=== PATIENT | female | born 1985 | race Caucasian/White ===

== ENCOUNTER 2017-04-22 20:34 | Emergency (ER) | payer MEDICARE, MEDICAID ==
[2017-04-22 21:22] VITALS: BP 135/80
--- NOTE | 2017-04-22 22:08 | UC ---
Ear Complaint HPI - HPI Summary HPI Summary: pt is accompanied by mother. Pt c/o right jaw pain that radiates to right ear. Pt has two false teeth that were recently placed an wired to right upper molar. - History of Current Complaint Chief Complaint: UCEar Stated Complaint: RIGHT EAR PAIN Time Seen by Provider: 04/22/17 21:57 Hx Obtained From: Patient, Family/Salesperson Burial Needs Hx Last Menstrual Period: on depo ?: No Onset/Duration: Gradual Onset, Lasting Hours Severity Initially: Mild Severity Currently: Mild - Allergies/Home Medications Allergies/Adverse Reactions: Allergies Allergy/AdvReac Type Severity Reaction Status Date / Time Levetiracetam [From [facility]] Allergy See Comment Verified 09/11/16 21:26 Sulfa Drugs AdvReac Severe Difficulty Verified 09/11/16 21:26 Breathing PMH/Surg Hx/FS Hx/Imm Hx Previously Healthy: Yes 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), VAGAL NERVE IMPLANT (1998) - Family History Known Family History: Positive: Hypertension, Seizure Disorder - Social History Alcohol Use: None Substance Use Type: None Smoking Status (MU): Never Smoked Tobacco Have You Smoked in the Last Year: No - Immunization History Most Recent Influenza Vaccination: 2014 Most Recent Tetanus Shot: On file with primary Dr Lopes Most Recent Pneumonia Vaccination: 2012 Review of Systems Constitutional: Negative Skin: Negative Eyes: Negative ENT: Other - right jaw pain Respiratory: Negative Cardiovascular: Negative Gastrointestinal: Negative Genitourinary: Negative Motor: Negative Neurovascular: Negative Musculoskeletal: Negative Neurological: Negative Psychological: Negative All Other Systems Reviewed And Are Negative: Yes Physical Exam Triage Information Reviewed: Yes Appearance: Well-Appearing Vital Signs: Initial Vital Signs Temp 98.4 F 04/22/17 21:10 Pulse 79 04/22/17 21:10 Resp 16 04/22/17 21:10 BP 135/80 04/22/17 21:10 Pulse Ox 99 04/22/17 21:10 Vital Signs Reviewed: Yes Eye Exam: Normal ENT Exam: Normal Dental Exam: Other Dental: Positive: Percussion Tenderness @ - right upper teeth, no swelling or abscess appreciated Neck exam: Normal Respiratory Exam: Normal Cardiovascular Exam: Normal Musculoskeletal Exam: Normal Neurological Exam: Normal Psychological Exam: Normal Skin Exam: Normal Ear Complaint Course/Dx - Course Course Of Treatment: Pt was advised to return to dental care provider to evaluate false teeth and adjust for improved comfort - Differential Dx/Diagnosis Differential Diagnosis/HQI/PQRI: Otitis Media Provider Diagnoses: dental pain. Pt was advised to return to dental care provider to evaluate false teeth and adjust for improved comfort Discharge - Discharge Plan Condition: Stable Disposition: HOME Patient Education Materials: Toothache (ED) Referrals: Kary Lopes MD [Primary Care Provider] - If Needed Additional Instructions: Please follow up with your dental care provider as soon as possible
== END 2017-04-22 22:24 | disposition home or self-care (01) ==
LOC: UCCORT 20:34
DX: K08.89 Other specified disorders of teeth and supporting structures (principal); Z88.2 Allergy status to sulfonamides; Z88.8 Allergy status to other drugs, medicaments and biological substances
CPT/HCPCS: 99212; G0463

== ENCOUNTER 2017-12-19 08:51 | Emergency (ER) | payer MEDICARE, MEDICAID ==
[2017-12-19 09:37] VITALS: BP 124/60
--- NOTE | 2017-12-19 10:08 | UC ---
Hip/Pelvis Pain - HPI Summary HPI Summary: right hip pain x 1 day s/p fall this morning on her right hip has been walking well - History Of Current Complaint Chief Complaint: UCLowerExtremity Stated Complaint: S/P FALL RIGHT HIP PAIN Time Seen by Provider: 12/19/17 09:49 Hx Obtained From: Patient, Family/Food Service Agent Hx Last Menstrual Period: depoprovera ?: No Onset/Duration: Sudden Onset, Lasting Hours - 2, Still Present Timing: Constant Severity Initially: Mild Severity Currently: Mild Pain Intensity: 0 Pain Scale Used: 0-10 Numeric Character Of Pain: Aching Aggravating Factor(s): Movement Alleviating Factor(s): Rest Associated Signs And Symptoms: Negative: Swelling, Redness, Bruising, Weakness, Dizziness - Allergies/Home Medications Allergies/Adverse Reactions: Allergies Allergy/AdvReac Type Severity Reaction Status Date / Time Levetiracetam [From [facility]] Allergy See Comment Verified 12/19/17 09:37 Sulfa Drugs AdvReac Severe Difficulty Verified 12/19/17 09:37 Breathing PMH/Surg Hx/FS Hx/Imm Hx - Additional Past Medical History Additional PMH: seizures, ADHD, autism Neurological History: Seizures 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), VAGAL NERVE IMPLANT (1998) - Family History Known Family History: Positive: Hypertension, Seizure Disorder - Social History Alcohol Use: None Substance Use Type: None Smoking Status (MU): Never Smoked Tobacco Have You Smoked in the Last Year: No - Immunization History Most Recent Influenza Vaccination: 2014 Most Recent Tetanus Shot: On file with primary Dr Lopes Most Recent Pneumonia Vaccination: 2012 Review of Systems Constitutional: Negative Skin: Negative Eyes: Negative ENT: Negative Respiratory: Negative Cardiovascular: Negative Is Patient Immunocompromised?: No All Other Systems Reviewed And Are Negative: Yes Physical Exam Triage Information Reviewed: Yes Appearance: No Pain Distress, Obese Vital Signs: Initial Vital Signs Temp 98.1 F 12/19/17 09:30 Pulse 72 12/19/17 09:30 Resp 18 12/19/17 09:30 BP 124/60 12/19/17 09:30 Pulse Ox 98 12/19/17 09:30 Vital Signs Reviewed: Yes Eyes: Positive: Conjunctiva Clear ENT: Positive: Normal ENT inspection, Hearing grossly normal, Pharynx normal Neck: Positive: Supple, Nontender, No Lymphadenopathy Respiratory: Positive: Chest non-tender, Lungs clear, Normal breath sounds Cardiovascular: Positive: RRR, No Murmur, Pulses Normal Abdominal Exam: Normal Musculoskeletal: Positive: Other: - right hip: no swelling, no ecchymosis, mild diffuse tenderness, good ROM , normal stringth Hip Injury Course/Dx - Differential Dx/Diagnosis Provider Diagnoses: contusion right hip Discharge - Discharge Plan Condition: Stable Disposition: HOME Patient Education Materials: Hip Contusion (ED) Referrals: Kary Lopes MD [Primary Care Provider] - If Needed
== END 2017-12-19 10:00 | disposition home or self-care (01) ==
LOC: UCCORT 08:51
DX: S70.01XA Contusion of right hip, initial encounter (principal); W19.XXXA Unspecified fall, initial encounter; Y92.9 Unspecified place or not applicable; Z88.2 Allergy status to sulfonamides; Q24.9 Congenital malformation of heart, unspecified
CPT/HCPCS: 99212; G0463

== ENCOUNTER 2018-01-04 08:34 | Emergency (ER) | payer MEDICARE, MEDICAID ==
[2018-01-04 09:31] VITALS: BP 138/66
--- NOTE | 2018-01-04 09:46 | UC ---
Minor Trauma HPI - HPI Summary HPI Summary: right lower jaw pain x 1 day s/p fall off her bed one day ago hit her right lower jaw to the bed + pain and swelling of right lower jaw no problem with chewing , talking - History of Current Complaint Chief Complaint: UCUpperExtremity Stated Complaint: FACIAL COMPLAINT Time Seen by Provider: 01/04/18 09:30 Hx Obtained From: Patient, Family/Accounting Bookkeeper Hx Last Menstrual Period: DEPO Onset/Duration: Sudden Onset, Lasting Days - 1, Still Present Severity Initially: Moderate Severity Currently: Moderate Pain Intensity: 4 Mechanism Of Injury: Blunt Trauma - to right lower jaw Aggravating Factor(s): Other: - touch Alleviating Factor(s): Nothing Associated Signs And Symptoms: Negative: Loss Of Consciousness, Ecchymosis, Swelling - Allergies/Home Medications Allergies/Adverse Reactions: Allergies Allergy/AdvReac Type Severity Reaction Status Date / Time [facility]am [[facility] Allergy See Comment Verified 01/04/18 09:21 Sulfa (Sulfonamide Allergy Difficulty Verified 01/04/18 09:21 Antibiotics) Breathing PMH/Surg Hx/FS Hx/Imm Hx - Additional Past Medical History Additional PMH: seizures, ADHD, autism Neurological History: Seizures 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), VAGAL NERVE IMPLANT (1998) - Family History Known Family History: Positive: Hypertension, Seizure Disorder - Social History Alcohol Use: None Substance Use Type: None Smoking Status (MU): Never Smoked Tobacco Have You Smoked in the Last Year: No - Immunization History Most Recent Influenza Vaccination: 2014 Most Recent Tetanus Shot: On file with primary Dr Lopes Most Recent Pneumonia Vaccination: 2012 Review of Systems Constitutional: Negative Skin: Negative Eyes: Negative ENT: Negative Respiratory: Negative Cardiovascular: Negative Is Patient Immunocompromised?: No All Other Systems Reviewed And Are Negative: Yes Physical Exam Triage Information Reviewed: Yes Appearance: Well-Appearing, Well-Nourished, Obese Vital Signs: Initial Vital Signs Temp 99.1 F 01/04/18 09:24 Pulse 73 01/04/18 09:24 Resp 14 01/04/18 09:24 BP 138/66 01/04/18 09:24 Pulse Ox 99 01/04/18 09:24 Vital Signs Reviewed: Yes Eyes: Positive: Conjunctiva Clear ENT: Positive: Normal ENT inspection, Hearing grossly normal, Pharynx normal, Other - right lower jaw : no swelling, no bruising , mild tenderness, good ROM of the mouth / jaw Neck: Positive: Supple, Nontender, No Lymphadenopathy Respiratory: Positive: Chest non-tender, Lungs clear, Normal breath sounds Cardiovascular Exam: Normal Cardiovascular: Positive: RRR, No Murmur Minor Trauma Course/Dx - Differential Dx/Diagnosis Provider Diagnoses: contusion jaw Discharge - Discharge Plan Condition: Stable Disposition: HOME Patient Education Materials: Facial Contusion (ED) Referrals: Kary Lopes MD [Primary Care Provider] - If Needed
== END 2018-01-04 09:52 | disposition home or self-care (01) ==
LOC: UCCORT 08:34
DX: S00.83XA Contusion of other part of head, initial encounter (principal); W06.XXXA Fall from bed, initial encounter; Y92.9 Unspecified place or not applicable; I50.9 Heart failure, unspecified
CPT/HCPCS: 99211; G0463

== ENCOUNTER 2018-02-02 17:37 | Emergency (ER) | payer MEDICARE, MEDICAID ==
[2018-02-02 18:02] VITALS: BP 118/73
--- NOTE | 2018-02-02 18:11 | ED ---
Throat Pain/Nasal Congestion - HPI Summary HPI Summary: 32 yr old female with the complaint of left eye irritation, drainage. Onset couple of days ago. No blur vision. No other complaints. - History of Current Complaint Chief Complaint: UCEye Time Seen by Provider: 02/02/18 17:53 - Allergies/Home Medications Allergies/Adverse Reactions: Allergies Allergy/AdvReac Type Severity Reaction Status Date / Time levetiracetam [From [facility]] Allergy See Comment Verified 02/02/18 17:55 Sulfa (Sulfonamide Allergy Difficulty Verified 02/02/18 17:55 Antibiotics) Breathing Home Medications: Home Medications Diazepam (ANTICONVULSANT)(*) [Diastat Acudial(*)] 20 mg RC SEE INSTRUCTIONS [History Confirmed 02/02/18] Melatonin 5 mg BEDTIME 02/02/18 [History Confirmed 02/02/18] Methylphenidate ER TAB* [Concerta ER TAB*] 36 mg QAM 02/02/18 [History Confirmed 02/02/18] Pregabalin CAP(*) [Lyrica CAP(*)] 150 mg BID 02/02/18 [History Confirmed ] Topiramate TAB(*) [Topamax 100 mg tab] 200 mg PO BID 02/02/18 [History Confirmed 02/02/18] carBAMazepine ER TAB(*) [TEGretol Xr TAB(*)] 400 mg PO BID 02/02/18 [History Confirmed 02/02/18] carBAMazepine ER TAB(*) [Tegretol Xr TAB(*)] 3 tab QPM 02/02/18 [History Confirmed 02/02/18] clonazePAM TAB(*) [KlonoPIN TAB(*)] 1 mg PO BID 02/02/18 [History Confirmed ] guanFACINE TAB* [Tenex TAB*] 2 mg PO DAILY 02/02/18 [History Confirmed 02/02/18] medroxyPROGESTERone ACETATE* [DEPO-Provera*] 1 inj SEE INSTRUCTIONS 02/02/18 [ History Confirmed 02/02/18] PMH/Surg Hx/FS Hx/Imm Hx Endocrine/Hematology History: Denies: Hx Anticoagulant Therapy, Hx Blood Disorders, Hx Blood Transfusions, Hx Bone Marrow Disease, Hx Diabetes - But Pt is morbidly obese, Hx Systemic Lupus Erythematosus, Hx Sickle Cell Disease, Hx Thyroid Disease, Hx Anemia, Hx Unexplained Bleeding, Other Endocrine/Hematological Disorders Cardiovascular History: Reports: 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), Hx Valvular Heart Disease - tricuspid regurgitation, pulmonic stenosis Denies: Hx Aneurysm, Hx Angina, Hx Angioplasty, Hx Auto Implanted Cardiovert Defib, Hx Cardiac Arrest, Hx Cardiomegaly, Hx Congestive Heart Failure, Hx Coronary Artery Disease, Hx Deep Vein Thrombosis, Hx Embolism, Hx Hypercholesterolemia, Hx Hypotension, Hx Hypertension, Hx Pacemaker/ICD - X 23 years ago, VAGEL NERVE IMPLANT, Hx Peripheral Vascular Disease, Hx Rheumatic Fever, Hx Syncope, Other Cardiovascular Problems/Disorders Respiratory History: Denies: Hx Asthma, Hx Chronic Bronchitis, Hx Chronic Obstructive Pulmonary Disease (COPD), Hx Cystic Fibrosis, Hx Lung Cancer, Hx Pleural Effusion, Hx Pneumonia, Hx Pulmonary Edema, Hx Pulmonary Embolism, Hx Seasonal Allergies, Hx Sleep Apnea, Other Respiratory Problems/Disorders GI History: Denies: Hx Cirrhosis, Hx Crohn's Disease, Hx Diverticulosis, Hx Gall Bladder Disease, Hx Gastroesophageal Reflux Disease, Hx Gastrointestinal Bleed, Hx Hiatal Hernia, Hx Irritable Bowel, Hx Jaundice, Hx Obstructive Bowel, Hx Ileostomy, Hx Pyloric Stenosis, Hx Ulcer, Other GI Disorders History: Reports: Other Problems/Disorders - Urinary Incontinence- especially with seizure activity Denies: Hx Acute Renal Failure, Hx Benign Prostatic Hyperplasia, Hx Chronic Renal Failure, Hx Dialysis, Hx Kidney Infection, Hx Kidney Stones Musculoskeletal History: Denies: Hx Arthritis, Hx Back Problems, Hx Bursitis, Hx Congenital Bone Abnormalities, Hx Fibromyalgia, Hx Gout, Hx Orthopedic Injury, Hx Osteoporosis, Hx Scoliosis, Hx Tendonitis, Other Musculoskeletal History Sensory History: Denies: Hx Cataracts, Hx Contacts or Glasses, Hx Eye Injury, Hx Eye Prosthesis, Hx Glaucoma, Hx Legally Blind, Hx Macular Degeneration, Hx Vision Problem, Hx Deafness, Hx Hearing Aid, Hx Hearing Problem, Other Sensory Impairments Opthamlomology History: Denies: Hx Cataracts, Hx Contacts or Glasses, Hx Eye Injury, Hx Eye Prosthesis, Hx Glaucoma, Hx Legally Blind, Hx Macular Degeneration, Hx Vision Problem, Other Sensory Impairments Neurological History: Reports: Hx Developmental Delay - Mental Retardation since , Hx Headaches - Pt reports as a particular presenting seizure, Hx Seizures - Hx seizures since infancy/Medically-intractable epilepsy, Other Neuro Impairments/Disorders - Developmental Delay since . Denies: Hx Dementia, Hx Migraine, Hx Nerve Disease, Hx Spinal Cord Injury, Hx Transient Ischemic Attacks (TIA) Psychiatric History: Reports: Hx Attention Deficit Hyperactivity Disorder Denies: Hx Anxiety, Hx Eating Disorder, Hx Depression, Hx Panic Disorder, Hx Post Traumatic Stress Disorder, Hx Inpatient Treatment, Hx Community Mental Health Tx, Hx Schizophrenia, Hx Bipolar Disorder, Hx Suicide Attempt, Hx of Violent Episodes Against Others, Hx Substance Abuse, Other Psychiatric Issues/ Disorders - Cancer History Hx Chemotherapy: No Hx Radiation Therapy: No Hx Palliative Cancer Treatment: No - Surgical History Surgery Procedure, Year, and Place: 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), VAGAL NERVE IMPLANT (1998) Hx Anesthesia Reactions: No - Immunization History Date of Tetanus Vaccine: unk Date of Influenza Vaccine: unk Infectious Disease History: No Infectious Disease History: Denies: Hx Clostridium Difficile, Hx Hepatitis, Hx Human Immunodeficiency Virus (HIV), Hx of Known/Suspected MRSA, Hx Shingles, Hx Tuberculosis, Hx Known/ Suspected VRE, Hx Known/Suspected VRSA, History Other Infectious Disease, Traveled Outside the [place] in Last 30 Days - Family History Known Family History: Positive: Hypertension, Seizure Disorder - Social History Alcohol Use: None Substance Use Type: Reports: None Smoking Status (MU): Never Smoked Tobacco Have You Smoked in the Last Year: No Review of Systems Constitutional: Negative Positive: Drainage, Erythema All Other Systems Reviewed And Are Negative: Yes Physical Exam Triage Information Reviewed: Yes Vital Signs On Initial Exam: Initial Vitals Temp Pulse Resp BP Pulse Ox 98.3 F 63 16 118/73 100 02/02/18 17:56 02/02/18 17:56 02/02/18 17:56 02/02/18 17:56 02/02/18 17:56 Vital Signs Reviewed: Yes Appearance: Positive: Well-Appearing, No Pain Distress, Well-Nourished Skin: Positive: Warm, Skin Color Reflects Adequate Perfusion Head/Face: Positive: Normal Head/Face Inspection Eyes: Positive: EOMI, Conjunctiva Inflammed - bilateral left greater than right. with bilateral drainage., Discharge ENT: Positive: TMs normal Neck: Positive: Nontender Respiratory/Lung Sounds: Positive: Other - normal effort Cardiovascular: Positive: RRR, Murmur Musculoskeletal: Positive: Strength/ROM Intact Neurological: Positive: Sensory/Motor Intact, Alert, Oriented to Person Place, Time, CN Intact II-III Diagnostics - Vital Signs Vital Signs Temp Pulse Resp BP Pulse Ox 02/02/18 17:56 98.3 F 63 16 118/73 100 - Laboratory Lab Statement: Any lab studies that have been ordered have been reviewed, and results considered in the medical decision making process. EENT Course/Dx - Diagnoses Provider Diagnoses: Conjunctivitis Discharge - Discharge Plan Condition: Good Disposition: HOME Prescriptions: Erythromycin OPTH OINT* [Erythromycin 0.5% OPTH OINT*] 1 applic BOTH EYES TID # 1 tube Patient Education Materials: Conjunctivitis (ED) Referrals: Kary Lopes MD [Primary Care Provider] - 2 Days
== END 2018-02-02 18:21 | disposition home or self-care (01) ==
LOC: UCCORT 17:37
DX: Z88.2 Allergy status to sulfonamides (principal); Z88.8 Allergy status to other drugs, medicaments and biological substances; Q24.9 Congenital malformation of heart, unspecified; R62.50 Unspecified lack of expected normal physiological development in childhood; F79 Unspecified intellectual disabilities; G40.919 Epilepsy, unspecified, intractable, without status epilepticus; F90.9 Attention-deficit hyperactivity disorder, unspecified type; H10.9 Unspecified conjunctivitis
CPT/HCPCS: 99212; G0463

== ENCOUNTER 2018-03-23 16:37 | Emergency (ER) | payer MEDICARE, MEDICAID ==
[2018-03-23 19:24] VITALS: BP 119/45
--- NOTE | 2018-03-23 19:36 | UC ---
Skin Complaint HPI - HPI Summary HPI Summary: Per ccna "pain under right breast today." here w/ staff member Nichole. -red area under skin. itchy, painful, no d/c. has had nystatin powder for this in past. - History of Current Complaint Chief Complaint: UCSkin Time Seen by Provider: 03/23/18 19:06 Stated Complaint: PAIN RIGHT SIDE Hx Last Menstrual Period: DEPO Pain Intensity: 4 - Allergy/Home Medications Allergies/Adverse Reactions: Allergies Allergy/AdvReac Type Severity Reaction Status Date / Time levetiracetam [From [facility]] Allergy See Comment Verified 03/23/18 16:58 Sulfa (Sulfonamide Allergy Difficulty Verified 03/23/18 16:58 Antibiotics) Breathing Review of Systems Constitutional: Negative Skin: Rash Eyes: Negative ENT: Negative Respiratory: Negative Cardiovascular: Negative Gastrointestinal: Negative Genitourinary: Negative Motor: Negative Neurovascular: Negative Musculoskeletal: Negative Neurological: Negative Psychological: Negative Is Patient Immunocompromised?: No All Other Systems Reviewed And Are Negative: Yes PMH/Surg Hx/FS Hx/Imm Hx Previously Healthy: Yes Cardiovascular History: Cardiac Disease 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), VAGAL NERVE IMPLANT (1998) - Family History Known Family History: Positive: Hypertension, Seizure Disorder - Social History Alcohol Use: None Substance Use Type: None Smoking Status (MU): Never Smoked Tobacco Have You Smoked in the Last Year: No - Immunization History Most Recent Influenza Vaccination: 2014 Most Recent Tetanus Shot: On file with primary Dr Lopes Most Recent Pneumonia Vaccination: 2012 Physical Exam Triage Information Reviewed: Yes Appearance: Well-Appearing, No Pain Distress, Well-Nourished - very pleasant Vital Signs: Initial Vital Signs Temp 97.9 F 03/23/18 16:52 Pulse 64 03/23/18 16:52 Resp 17 03/23/18 16:52 BP 121/67 03/23/18 16:52 Pulse Ox 99 03/23/18 16:52 Respiratory Exam: Normal Respiratory: Positive: Lungs clear Cardiovascular Exam: Normal Cardiovascular: Positive: RRR Skin: Positive: rashes - right inframmary area with mild -mod non-blanchin area of erythema under bra starp. no streaks of d/c. Course/Dx - Course Course Of Treatment: yeast infection - Differential Diagnoses - Skin Complaint Differential Diagnoses: Tinea, Viral Exanthem - Diagnoses Provider Diagnoses: yeast infection skin Discharge - Sign-Out/Discharge Documenting (check all that apply): Post-Discharge Follow Up - Discharge Plan Condition: Stable Disposition: HOME Prescriptions: Nystatin TOP POWDER* 1 applic TOPICAL TID 14 Days #1 btl Patient Education Materials: Skin Yeast Infection (ED) Referrals: Kary Lopes MD [Primary Care Provider] - If Needed - Billing Disposition and Condition Condition: STABLE Disposition: HOME
== END 2018-03-23 19:42 | disposition home or self-care (01) ==
LOC: UCCORT 16:37
DX: B37.2 Candidiasis of skin and nail (principal); Z88.8 Allergy status to other drugs, medicaments and biological substances; Z88.2 Allergy status to sulfonamides
CPT/HCPCS: 99212; G0463

== ENCOUNTER 2018-06-05 18:32 | Emergency (ER) | payer MEDICARE, MEDICAID ==
[2018-06-05 18:51] VITALS: BP 123/57
--- NOTE | 2018-06-05 19:10 | UC ---
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 pt is c/o abrasion to the R elbow and R hip pain. no loc/head injury. 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 - History Of Current Complaint Chief Complaint: UCLowerExtremity Stated Complaint: RIGHT HIP/RIGHT ELBOW PAIN S/P FALL Time Seen by Provider: 06/05/18 18:55 Hx Obtained From: Patient, Family/Restaurant District Manager Hx Last Menstrual Period: on Depo Provera Onset/Duration: Sudden Onset Pain Intensity: 8 Aggravating Factor(s): Nothing Alleviating Factor(s): Nothing - Allergies/Home Medications Allergies/Adverse Reactions: Allergies Allergy/AdvReac Type Severity Reaction Status Date / Time levetiracetam [From [facility]] Allergy See Comment Verified 06/05/18 18:51 Sulfa (Sulfonamide Allergy Difficulty Verified 06/05/18 18:51 Antibiotics) Breathing Home Medications: Home Medications Ascorbic Acid TAB* [Vitamin C TAB*] 500 mg PO DAILY 06/05/18 [History Confirmed 06/05/18] Cholecalciferol TAB* [Vitamin D TAB*] 1,000 unit PO DAILY 06/05/18 [History Confirmed 06/05/18] Lacosamide TAB* [Vimpat TAB*] 100 mg PO BID 06/05/18 [History Confirmed 06/05/18 ] Nystatin TOP POWDER* 1 applic TOPICAL TID PRN 06/05/18 [History Confirmed ] PMH/Surg Hx/FS Hx/Imm Hx - Additional Past Medical History Additional PMH: Intellectual disability, sz's, ADHD Cardiovascular History: Hypertension 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), VAGAL NERVE IMPLANT (1998) - Family History Known Family History: Positive: Hypertension, Seizure Disorder - Social History Occupation: Disabled Lives: [place] Alcohol Use: None Substance Use Type: None Smoking Status (MU): Never Smoked Tobacco Have You Smoked in the Last Year: No - Immunization History Most Recent Influenza Vaccination: 2014 Most Recent Tetanus Shot: On file with primary Dr Lopes Most Recent Pneumonia Vaccination: 2012 Vaccination Up to Date: Yes Review of Systems Constitutional: Negative Skin: Other - abrasion R elbow Eyes: Negative ENT: Negative Respiratory: Negative Cardiovascular: Negative Gastrointestinal: Negative Genitourinary: Negative Motor: Negative Neurovascular: Negative Musculoskeletal: Other: - pain r hip Neurological: Negative Psychological: Negative Is Patient Immunocompromised?: No All Other Systems Reviewed And Are Negative: Yes - Comments Additional Review of Systems Comments: caregiver and pt give hx Physical Exam Triage Information Reviewed: Yes Appearance: Well-Appearing Vital Signs: Initial Vital Signs Temp 97.5 F 06/05/18 18:42 Pulse 65 06/05/18 18:42 Resp 18 06/05/18 18:42 BP 123/57 06/05/18 18:42 Pulse Ox 99 06/05/18 18:42 Vital Signs Reviewed: Yes Eyes: Positive: Conjunctiva Clear ENT: Positive: Pharynx normal, TMs normal. Negative: Nasal congestion, Nasal drainage Neck: Positive: Supple, Nontender, No Lymphadenopathy Respiratory: Positive: Chest non-tender, Lungs clear, Normal breath sounds Cardiovascular: Positive: RRR, No Murmur Abdomen Description: Positive: Nontender, No Organomegaly, Soft Bowel Sounds: Positive: Present Musculoskeletal: Positive: Other: - Cervical, thoracic and lumbar spine are without deformity or tenderness. Right upper extremity is noted to have superficial abrasion over the elbow but no other deformity and no tenderness appreciated postal sensorivascular motor is intact. Left upper and left lower extremities are atraumatic and have full sensorivascular motor function. Pelvis is without instability or tenderness and no gross deformity swelling or discoloration appreciated; however, patient complains of pain to her right hip during the exam. Both look very have full sensorivascular motor function and patient is normal steady gait. Head is atraumatic. Neurological: Positive: Alert Psychological: Positive: Age Appropriate Behavior - baseline for this pt Skin Exam: Normal Diagnostics - Radiology No standard instances Radiology Interpretation Completed By: Radiologist - IMPRESSION: NEGATIVE EXAMINATION. Hip Injury Course/Dx - Course Course Of Treatment: no fx. - Differential Dx/Diagnosis Provider Diagnoses: Abrasion R elbow. Contusion R hip Discharge - Sign-Out/Discharge Documenting (check all that apply): Patient Departure - Discharge Plan Condition: Stable Disposition: HOME Patient Education Materials: Abrasion (ED), Hip Contusion (ED) Referrals: Kary Lopes MD [Primary Care Provider] - If Needed - Billing Disposition and Condition Condition: STABLE Disposition: Home
--- NOTE | 2018-06-05 19:34 | RAD ---
INDICATION: Right hip pain COMPARISON: None TECHNIQUE: An AP view of the pelvis and AP views of the hip in neutral and abducted position were obtained FINDINGS: Bones: There are no acute bony findings. Joint spaces: The hips articulate normally. The joint spaces are preserved. SI joints/symphysis: The SI joints and symphysis are intact. Other: None IMPRESSION: NEGATIVE EXAMINATION.
== END 2018-06-05 19:57 | disposition home or self-care (01) ==
LOC: UCCORT 18:32
DX: S70.01XA Contusion of right hip, initial encounter (principal); W01.0XXA Fall on same level from slipping, tripping and stumbling without subsequent striking against object, initial encounter; Y93.01 Activity, walking, marching and hiking; Y92.9 Unspecified place or not applicable; Z88.2 Allergy status to sulfonamides; Z88.8 Allergy status to other drugs, medicaments and biological substances; I10 Essential (primary) hypertension; R56.9 Unspecified convulsions; S50.311A Abrasion of right elbow, initial encounter
CPT/HCPCS: 99212; G0463

== ENCOUNTER 2018-10-31 07:59 | Emergency (ER) | payer MEDICARE, MEDICAID ==
--- NOTE | 2018-10-31 08:21 | UC ---
Knee Pain HPI - HPI Summary HPI Summary: 32-year-old woman comes in to clinic today with a chief complaint of fall and injury to the right knee. Just prior to arrival she tripped on a step indoors and landed on a right knee. She is an abrasion on the right knee. She got up right away has been able to ambulate without any complaint of pain. Denies any other injuries. Walking does not make the pain worse. - History of Current Complaint Stated Complaint: S/P FALL, RT KNEE INJURY Time Seen by Provider: 10/31/18 08:16 Hx Last Menstrual Period: on Depo Provera - Allergies/Home Medications Allergies/Adverse Reactions: Allergies Allergy/AdvReac Type Severity Reaction Status Date / Time levetiracetam [From [facility]] Allergy See Comment Verified 06/05/18 18:51 Sulfa (Sulfonamide Allergy Difficulty Verified 06/05/18 18:51 Antibiotics) Breathing PMH/Surg Hx/FS Hx/Imm Hx Previously Healthy: Yes Neurological History: Seizures 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), VAGAL NERVE IMPLANT (1998) - Family History Known Family History: Positive: Hypertension, Seizure Disorder - Social History Alcohol Use: None Substance Use Type: None Smoking Status (MU): Never Smoked Tobacco Have You Smoked in the Last Year: No - Immunization History Most Recent Influenza Vaccination: 2014 Most Recent Tetanus Shot: On file with primary Dr Lopes Most Recent Pneumonia Vaccination: 2013 Vaccination Up to Date: Yes Review of Systems All Other Systems Reviewed And Are Negative: Yes Constitutional: Positive: Negative Skin: Positive: Other - SEE HPI Eyes: Positive: Negative ENT: Positive: Negative Respiratory: Positive: Negative Cardiovascular: Positive: Negative Gastrointestinal: Positive: Negative Motor: Positive: Negative Neurovascular: Positive: Negative Musculoskeletal: Positive: Negative Neurological: Positive: Negative Psychological: Positive: Negative Is Patient Immunocompromised?: No Physical Exam Triage Information Reviewed: Yes Appearance: Well-Appearing, No Pain Distress, Well-Nourished Vital Signs Reviewed: Yes Eye Exam: Normal Eyes: Positive: Conjunctiva Clear Neck exam: Normal Neck: Positive: Supple Respiratory: Positive: No respiratory distress Musculoskeletal Exam: Normal Musculoskeletal: Positive: Strength Intact, ROM Intact, No Edema, Other: - The right knee is not swollen. It is full range of motion it's nontender except directly over the top of the abrasion. It's stable to exam. Hip and ankle have full range of motion and are nontender there is no injuries found on examination other than the abrasion to the right knee. Neurological Exam: Normal Neurological: Positive: Alert, Muscle Tone Normal Psychological Exam: Normal Psychological: Positive: Age Appropriate Behavior Skin: Positive: Other - 2CM DIAMETER SUPERFICIAL ABRASION RT KNEE. Knee Pain Course/Dx - Differential Dx/Diagnosis Provider Diagnosis: Abrasion Discharge - Sign-Out/Discharge Documenting (check all that apply): Patient Departure All imaging exams completed and their final reports reviewed: No Studies - Discharge Plan Condition: Stable Disposition: HOME Patient Education Materials: Abrasion (ED) Referrals: Kary Lopes MD [Primary Care Provider] - Additional Instructions: FOLLOW UP WITH YOUR DOCTOR IF NOT COMPLETELY IMPROVED. GET RECHECKED FOR ANY WORSENING OF YOUR CONDITION OR QUESTIONS OR CONCERNS. - Billing Disposition and Condition Condition: STABLE Disposition: Home
[2018-10-31 08:24] VITALS: BP 116/63
== END 2018-10-31 08:25 | disposition home or self-care (01) ==
LOC: UCCORT 07:59
DX: S80.211A Abrasion, right knee, initial encounter (principal); W19.XXXA Unspecified fall, initial encounter; Y92.9 Unspecified place or not applicable; Z88.2 Allergy status to sulfonamides; Z88.8 Allergy status to other drugs, medicaments and biological substances
CPT/HCPCS: 99212; G0463

== ENCOUNTER 2018-12-06 09:46 | Emergency (ER) | payer MEDICARE, MEDICAID ==
[2018-12-06 11:37] VITALS: BP 102/60
--- NOTE | 2018-12-06 11:56 | UC ---
Eye Complaint HPI - HPI Summary HPI Summary: right eye pain and swelling x 1 day s/p fall out of her bed last night , hit her right orbit + pain , swelling, bruising around the right eye no eye pain , no change in vision - History of Current Complaint Chief Complaint: UCHeadInjury Stated Complaint: RIGHT EYE COMPLAINT S/P FALL Time Seen by Provider: 12/06/18 11:40 Hx Obtained From: Patient, Family/Auctioneer Tobacco Hx Last Menstrual Period: n/a Onset/Duration: Sudden Onset, Lasting Days - 1, Still Present Timing: Constant Severity Initially: Moderate Severity Currently: Moderate Pain Intensity: 8 Location of Injury: Periorbital - swelling and bruising Character: Dull Aggravating Factor(s): Other - touch Alleviating Factor(s): Nothing Associated Signs And Symptoms: Positive: Swelling. Negative: Photophobia, Drainage (Clear), Drainage (Purulent), Vision Impairment Bilateral, Vision Impairment Right, Vision Impairment Left, Fever Related History: Trauma - s/p fall out of her erica - Allergies/Home Medications Allergies/Adverse Reactions: Allergies Allergy/AdvReac Type Severity Reaction Status Date / Time levetiracetam [From [facility]] Allergy See Comment Verified 12/06/18 11:38 Sulfa (Sulfonamide Allergy Difficulty Verified 12/06/18 11:38 Antibiotics) Breathing Home Medications: Home Medications See Med List Of 12/06/18 12/06/18 [History] PMH/Surg Hx/FS Hx/Imm Hx Cardiovascular History: Cardiac Disease Neurological History: Seizures 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), VAGAL NERVE IMPLANT (1998) - Family History Known Family History: Positive: Hypertension, Seizure Disorder - Social History Alcohol Use: None Substance Use Type: None Smoking Status (MU): Never Smoked Tobacco Have You Smoked in the Last Year: No - Immunization History Most Recent Influenza Vaccination: 2014 Most Recent Tetanus Shot: On file with primary Dr Lopes Most Recent Pneumonia Vaccination: 2013 Vaccination Up to Date: Yes Review of Systems All Other Systems Reviewed And Are Negative: Yes Constitutional: Positive: Negative Skin: Positive: Negative Eyes: Negative: Blurred Vision, Diplopia, Drainage, Eye Redness, Photophobia ENT: Positive: Negative Respiratory: Positive: Negative Is Patient Immunocompromised?: No Physical Exam Triage Information Reviewed: Yes Appearance: Well-Appearing, No Pain Distress, Obese Vital Signs: Initial Vital Signs Temp 98.6 F 12/06/18 11:25 Pulse 62 12/06/18 11:25 Resp 18 12/06/18 11:25 BP 102/60 12/06/18 11:25 Pulse Ox 99 12/06/18 11:25 Vital Signs Reviewed: Yes Eyes: Positive: Conjunctiva Clear, Other: - periorbital ecchymosis , mild tenderness, + swelling PERRLA . EOMI. Negative: Conjunctiva Inflamed, Discharge ENT: Positive: Normal ENT inspection, Hearing grossly normal, Pharynx normal Eye Complaint Course/Dx - Differential Dx/Diagnosis Provider Diagnosis: Periorbital contusion Discharge - Sign-Out/Discharge Documenting (check all that apply): Patient Departure All imaging exams completed and their final reports reviewed: No Studies - Discharge Plan Condition: Stable Disposition: HOME Patient Education Materials: Contusion in Adults (ED) Referrals: Kary Lopes MD [Primary Care Provider] - If Needed - Billing Disposition and Condition Condition: STABLE Disposition: Home
== END 2018-12-06 11:57 | disposition home or self-care (01) ==
LOC: UCCORT 09:46
DX: S00.11XA Contusion of right eyelid and periocular area, initial encounter (principal); W06.XXXA Fall from bed, initial encounter; Y92.003 Bedroom of unspecified non-institutional (private) residence as the place of occurrence of the external cause; Z88.1 Allergy status to other antibiotic agents; Z88.8 Allergy status to other drugs, medicaments and biological substances
CPT/HCPCS: 99212; G0463

== ENCOUNTER 2019-02-06 08:43 | Emergency (ER) | payer MEDICARE, MEDICAID ==
[2019-02-06 09:05] VITALS: BP 100/65
--- NOTE | 2019-02-06 10:04 | UC ---
Knee Pain HPI - HPI Summary HPI Summary: Pt is accompanied by jail caregiver. Caregiver reported that pt tripped coming down stairs coming off bus to work and landed on bilateral knees today. Pt now c/o left knee abrasion, pain, swelling and bruising. - History of Current Complaint Chief Complaint: UCLowerExtremity Stated Complaint: LEFT KNEE INJ Time Seen by Provider: 02/06/19 09:53 Hx Obtained From: Patient, Family/Hose Tubing Backer Hx Last Menstrual Period: n/a ?: No Onset/Duration: Sudden Onset, Still Present Severity Initially: Mild Severity Currently: Mild Pain Intensity: 6 Character: Dull, Aching Aggravating Factor(s): Movement, Weight Bearing Alleviating Factor(s): Rest, Position Associated Signs And Symptoms: Positive: Swelling, Redness, Bruising Able to Bear Weight: Yes - Risk Factors Septic Arthritis Risk Factor: Negative Gout Risk Factor: Negative - Allergies/Home Medications Allergies/Adverse Reactions: Allergies Allergy/AdvReac Type Severity Reaction Status Date / Time levetiracetam [From [facility]] Allergy See Comment Verified 02/06/19 09:01 Sulfa (Sulfonamide Allergy Difficulty Verified 02/06/19 09:01 Antibiotics) Breathing PMH/Surg Hx/FS Hx/Imm Hx Previously Healthy: Yes Cardiovascular History: Cardiac Disease Neurological History: Seizures 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), VAGAL NERVE IMPLANT (1998) - Family History Known Family History: Positive: Hypertension, Seizure Disorder - Social History Occupation: Employed Part-time, Disabled Lives: [place] Alcohol Use: None Substance Use Type: None Smoking Status (MU): Never Smoked Tobacco Have You Smoked in the Last Year: No - Immunization History Most Recent Influenza Vaccination: 2014 Most Recent Tetanus Shot: On file with primary Dr Lopes Most Recent Pneumonia Vaccination: 2013 Vaccination Up to Date: Yes Review of Systems All Other Systems Reviewed And Are Negative: Yes Constitutional: Positive: Negative Skin: Positive: Bruising, Other - abrasion Eyes: Positive: Negative ENT: Positive: Negative Respiratory: Positive: Negative Cardiovascular: Positive: Negative Gastrointestinal: Positive: Negative Genitourinary: Positive: Negative Motor: Positive: Negative Neurovascular: Positive: Negative Musculoskeletal: Positive: Arthralgia, Myalgia Neurological: Positive: Negative Psychological: Positive: Negative Is Patient Immunocompromised?: No Physical Exam Triage Information Reviewed: Yes Appearance: Well-Appearing Vital Signs: Initial Vital Signs Temp 97.5 F 02/06/19 09:00 Pulse 64 02/06/19 09:00 Resp 18 02/06/19 09:00 BP 100/65 02/06/19 09:00 Pulse Ox 100 02/06/19 09:00 Vital Signs Reviewed: Yes Eye Exam: Normal ENT Exam: Normal Dental Exam: Normal Neck exam: Normal Respiratory Exam: Normal Cardiovascular Exam: Normal Musculoskeletal Exam: Normal Musculoskeletal: Positive: Strength Intact, ROM Intact Neurological Exam: Normal Psychological Exam: Normal Skin Exam: Other - contusion left medial calf, and left anterior knee. multiple superficial abrasions, laceration, bleeding controlled. ~ 3 cm in length and 2mm wide and 2 mm depth. edges of wound well appoximated and bleeding stopped at time of exam. Diagnostics - Radiology No standard instances Radiology Interpretation Completed By: Radiologist - REPORT AND IMPRESSION: #. Negative for joint effusion, fracture, or malalignment. Preserved joint spaces. Mild predominant anterior soft tissue swelling. Knee Pain Course/Dx - Differential Dx/Diagnosis Differential Diagnosis/HQI/PQRI: Abrasion, Fracture (Closed) Provider Diagnosis: Laceration of left knee, Contusion of left knee and lower leg, Abrasion of left knee Discharge - Sign-Out/Discharge Documenting (check all that apply): Patient Departure All imaging exams completed and their final reports reviewed: Yes - Discharge Plan Condition: Stable Disposition: HOME Patient Education Materials: Abrasion (ED), Knee Pain (ED) Referrals: Kary Lopes MD [Primary Care Provider] - If Needed - Billing Disposition and Condition Condition: STABLE Disposition: Home
== END 2019-02-06 10:25 | disposition home or self-care (01) ==
LOC: UCCORT 08:43
DX: S81.012A Laceration without foreign body, left knee, initial encounter (principal); S80.02XA Contusion of left knee, initial encounter; S80.212A Abrasion, left knee, initial encounter; Z88.2 Allergy status to sulfonamides; Z88.8 Allergy status to other drugs, medicaments and biological substances; W18.49XA Other slipping, tripping and stumbling without falling, initial encounter; Y92.9 Unspecified place or not applicable
CPT/HCPCS: 99212; G0463

== ENCOUNTER 2019-05-01 17:55 | Emergency (ER) | payer MEDICARE, MEDICAID ==
[2019-05-01 18:38] VITALS: BP 121/59
--- NOTE | 2019-05-01 19:01 | UC ---
Abdominal Pain Female HPI - HPI Summary HPI Summary: 33-year-old female with history of developmental delays presents with caregiver reporting abdominal pain, anorexia, nausea, and 2 episodes of vomiting. Caregiver states that patient had an episode of vomiting at approximately 10:30 this morning immediately after eating her snack. They tried to give her some toast and juice again around suppertime and the patient again immediately vomited. She has been reporting belly pain. Caregiver states they are unsure of her last bowel movement. Caregiver states that [facility] was concerned about a possible blockage. Denies fever, emesis, diarrhea, or urinary symptoms. - History of Current Complaint Chief Complaint: UCGI Stated Complaint: VOMITING Time Seen by Provider: 05/01/19 18:48 Hx Obtained From: Patient Hx Last Menstrual Period: on DEPO Inj Pain Intensity: 6 Allergies/Adverse Reactions: Allergies Allergy/AdvReac Type Severity Reaction Status Date / Time levetiracetam [From [facility]] Allergy See Comment Verified 05/01/19 18:31 Sulfa (Sulfonamide Allergy Difficulty Verified 05/01/19 18:31 Antibiotics) Breathing PMH/Surg Hx/FS Hx/Imm Hx Cardiovascular History: Other - Congenital heart defects Neurological History: Seizures 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), VAGAL NERVE IMPLANT (1998) - Family History Known Family History: Positive: Hypertension, Seizure Disorder - Social History Occupation: Disabled Lives: [employer] Alcohol Use: None Substance Use Type: None Smoking Status (MU): Never Smoked Tobacco Have You Smoked in the Last Year: No - Immunization History Most Recent Influenza Vaccination: 2014 Most Recent Tetanus Shot: On file with primary Dr Lopes Most Recent Pneumonia Vaccination: 2013 Vaccination Up to Date: Yes Review of Systems All Other Systems Reviewed And Are Negative: Yes Constitutional: Negative: Fever, Chills Respiratory: Negative: Shortness Of Breath, Cough Cardiovascular: Negative: Palpitations, Chest Pain Gastrointestinal: Positive: Abdominal Pain, Vomiting, Nausea. Negative: Diarrhea Genitourinary: Negative: Dysuria, Frequency, Urgency Musculoskeletal: Positive: Negative Neurological: Positive: Negative Is Patient Immunocompromised?: No Physical Exam - Summary Physical Exam Summary: GENERAL APPEARANCE: Well developed, obese, alert and cooperative adult female who appears to be in no acute distress. CARDIAC: Normal S1 and S2. No S3, S4 or murmurs. Rhythm is regular. There is no peripheral edema, cyanosis or pallor. Extremities are warm and well perfused. Capillary refill is less than 2 seconds. Peripheral pulses intact. LUNGS: Clear to auscultation without rales, rhonchi, wheezing or diminished breath sounds. ABDOMEN: Positive bowel sounds. Soft, nondistended. Generalized abdominal pain without guarding or rebound. No masses or hepatosplenomegally. No CVA. MUSKULOSKELETAL: ROM intact to all extremities. No joint erythema or tenderness. Normal muscular development. Normal gait. SKIN: Skin normal color, texture and turgor with no lesions or eruptions. Triage Information Reviewed: Yes Vital Signs: Initial Vital Signs Temp 97.9 F 05/01/19 18:31 Pulse 67 05/01/19 18:31 Resp 16 05/01/19 18:31 BP 121/59 05/01/19 18:31 Pulse Ox 100 05/01/19 18:31 Vital Signs Reviewed: Yes Abd Pain Female Course/Dx - Course Course Of Treatment: 33-year-old female with history of developmental delays presents with caregiver reporting abdominal pain, anorexia, nausea, and 2 episodes of vomiting. Caregiver states that patient had an episode of vomiting at approximately 10:30 this morning immediately after eating her snack. They tried to give her some toast and juice again around suppertime and the patient again immediately vomited. She has been reporting belly pain. Caregiver states they are unsure of her last bowel movement. Caregiver states that [facility] was concerned about a possible blockage. Denies fever, emesis, diarrhea, or urinary symptoms. Afebrile. Vital signs stable. Patient had some generalized abdominal tenderness without guarding or rebound and otherwise unremarkable exam. I discussed with the caregiver that abdominal pain with nausea and vomiting has a broad differential and with their concern of a possible bowel obstruction I have recommending that you go to the emergency room for further evaluation. They are agreeable to this and elected to transport via private vehicle. - Differential Dx/Diagnosis Differential Diagnosis: Appendicitis, Bowel Obstruction, Constipation, Gall Bladder Disease, Pancreatitis, Peptic Ulcer Disease, Urinary Tract Infection Provider Diagnosis: Acute abdominal pain Discharge - Sign-Out/Discharge Documenting (check all that apply): Patient Departure All imaging exams completed and their final reports reviewed: No Studies - Discharge Plan Condition: Stable Disposition: HOME-RECOMMEND TO ED Patient Education Materials: Acute Abdominal Pain (ED) Referrals: Kary Lopes MD [Primary Care Provider] - Additional Instructions: There are many causes of acute abdominal pain with nausea and vomiting. I suspect that you may have a gastroenteritis however I cannot rule out other causes here in the urgent care center. I am recommending that you be evaluated in the emergency room at this time. Please go directly to the emergency room from here. Do not eat or drink anything until you have been evaluated. - Billing Disposition and Condition Condition: STABLE Disposition: Home-Recommend to ED
== END 2019-05-01 19:10 | disposition home health service (06) ==
LOC: UCCORT 17:55
DX: R10.84 Generalized abdominal pain (principal); R62.50 Unspecified lack of expected normal physiological development in childhood; Z88.2 Allergy status to sulfonamides; Z98.890 Other specified postprocedural states
CPT/HCPCS: 99212; G0463

== ENCOUNTER 2019-05-09 16:18 | Emergency (ER) | payer MEDICARE, MEDICAID ==
[2019-05-09 16:35] VITALS: BP 117/68
--- NOTE | 2019-05-09 17:06 | UC ---
General HPI - HPI Summary HPI Summary: Pt is accompanied by alf caregiver. Caregiver states that patient has eaten a small amount of bath sponge. Pt has also verbalized that she swallowed small amount of bath sponge prior to arrival to . Pt denies abdominal pain, difficulty breathing or swallowing. - History of Current Complaint Chief Complaint: UCForeignBody Stated Complaint: ATE A SPONGE Time Seen by Provider: 05/09/19 16:51 Hx Obtained From: Family/Health Counselor Hx Last Menstrual Period: on DEPO Inj Onset/Duration: Sudden Onset Current Severity: None Pain Intensity: 0 Associated Signs & Symptoms: Positive: Other - ingested foreign object - Allergy/Home Medications Allergies/Adverse Reactions: Allergies Allergy/AdvReac Type Severity Reaction Status Date / Time levetiracetam [From [facility]] Allergy See Comment Verified 05/09/19 16:35 Sulfa (Sulfonamide Allergy Difficulty Verified 05/09/19 16:35 Antibiotics) Breathing PMH/Surg Hx/FS Hx/Imm Hx Previously Healthy: Yes - cognitive dysfunction. 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), VAGAL NERVE IMPLANT (1998) - Family History Known Family History: Positive: Hypertension, Seizure Disorder - Social History Occupation: Disabled Lives: Retirement Alcohol Use: None Substance Use Type: None Smoking Status (MU): Never Smoked Tobacco Have You Smoked in the Last Year: No - Immunization History Most Recent Influenza Vaccination: 2014 Most Recent Tetanus Shot: On file with primary Dr Lopes Most Recent Pneumonia Vaccination: 2013 Vaccination Up to Date: Yes Review of Systems All Other Systems Reviewed And Are Negative: Yes Constitutional: Positive: Negative Skin: Positive: Negative Eyes: Positive: Negative ENT: Positive: Negative Respiratory: Positive: Negative Cardiovascular: Positive: Negative Gastrointestinal: Positive: Other - ingested small amount of bath sponge Genitourinary: Positive: Negative Motor: Positive: Negative Neurovascular: Positive: Negative Musculoskeletal: Positive: Negative Neurological: Positive: Negative Psychological: Positive: Negative Is Patient Immunocompromised?: No Physical Exam Triage Information Reviewed: Yes Appearance: Well-Appearing, No Pain Distress Vital Signs: Initial Vital Signs Temp 97.6 F 05/09/19 16:30 Pulse 67 05/09/19 16:30 Resp 16 05/09/19 16:30 BP 117/68 05/09/19 16:30 Pulse Ox 100 05/09/19 16:30 Vital Signs Reviewed: Yes Eye Exam: Normal Dental: Positive: Gross Decay/Caries @ Neck exam: Normal Respiratory Exam: Normal Cardiovascular Exam: Normal Abdominal Exam: Normal Abdomen Description: Positive: Nontender Bowel Sounds: Positive: Present Musculoskeletal Exam: Normal Neurological Exam: Normal Psychological Exam: Normal Skin Exam: Normal Course/Dx - Course Course Of Treatment: Pt's caregiver instructed to monitor for abdominal pain, passing of FB, nausea, vomiting, fever, chills, decreased appetite - Diagnoses Provider Diagnosis: Ingestion of foreign material Discharge - Sign-Out/Discharge Documenting (check all that apply): Patient Departure All imaging exams completed and their final reports reviewed: No Studies - Discharge Plan Condition: Stable Disposition: HOME Patient Education Materials: Foreign Body Ingestion (ED) Referrals: Kary Lopes MD [Primary Care Provider] - If Needed - Billing Disposition and Condition Condition: STABLE Disposition: Home
== END 2019-05-09 17:14 | disposition home or self-care (01) ==
LOC: UCCORT 16:18
DX: T18.9XXA Foreign body of alimentary tract, part unspecified, initial encounter (principal); X58.XXXA Exposure to other specified factors, initial encounter; Y92.9 Unspecified place or not applicable; G31.84 Mild cognitive impairment of uncertain or unknown etiology
CPT/HCPCS: 99211; G0463

== ENCOUNTER 2019-05-24 10:23 | Emergency (ER) | payer MEDICARE, MEDICAID ==
[2019-05-24 11:27] VITALS: BP 127/70
--- NOTE | 2019-05-24 12:28 | UC ---
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 Patient has known seizure history. Patient was able to stand and walk on the knee immediately after the injury. Currently states is pain free. Denies any numbness or tingling. 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 Hx Last Menstrual Period: on DEPO Inj Pain Intensity: 2 - Allergies/Home Medications Allergies/Adverse Reactions: Allergies Allergy/AdvReac Type Severity Reaction Status Date / Time levetiracetam [From [facility]] Allergy See Comment Verified 05/24/19 11:27 Sulfa (Sulfonamide Allergy Difficulty Verified 05/24/19 11:27 Antibiotics) Breathing PMH/Surg Hx/FS Hx/Imm Hx Cardiovascular History: Hypertension Neurological History: Seizures Psychological History: Other - ADHD, Intelectual disability 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), VAGAL NERVE IMPLANT (1998) - Family History Known Family History: Positive: Hypertension, Seizure Disorder - Social History Occupation: Employed Part-time Lives: Longterm Alcohol Use: None Substance Use Type: None Smoking Status (MU): Never Smoked Tobacco Have You Smoked in the Last Year: No - Immunization History Most Recent Influenza Vaccination: 2014 Most Recent Tetanus Shot: On file with primary Dr Lopes Most Recent Pneumonia Vaccination: 2013 Vaccination Up to Date: Yes Review of Systems All Other Systems Reviewed And Are Negative: Yes Constitutional: Positive: Negative Skin: Positive: Bruising Respiratory: Positive: Negative Cardiovascular: Positive: Negative Gastrointestinal: Positive: Negative Genitourinary: Positive: Negative Motor: Negative: Weakness Neurovascular: Negative: Decreased Sensation Musculoskeletal: Positive: Other: - See HPI Neurological: Positive: Negative Is Patient Immunocompromised?: No Physical Exam Triage Information Reviewed: Yes Appearance: Well-Appearing, No Pain Distress, Obese Vital Signs: Initial Vital Signs Temp 97.5 F 05/24/19 11:21 Pulse 65 05/24/19 11:21 Resp 16 05/24/19 11:21 BP 127/70 05/24/19 11:21 Pulse Ox 98 05/24/19 11:21 Vital Signs Reviewed: Yes Respiratory: Positive: Lungs clear, Normal breath sounds, No respiratory distress, No accessory muscle use Cardiovascular: Positive: RRR, No Murmur, Pulses Normal, Brisk Capillary Refill Abdomen Description: Positive: Nontender, No Organomegaly, Soft Bowel Sounds: Positive: Present Musculoskeletal: Positive: Other: - Ecchymosis noted over the left patella. Full painless ROM to the left knee. No tenderness, gross deformity, crepitus, or locking. Circulation and sensation intact. Neurological: Positive: Alert, Muscle Tone Normal Skin: Positive: Other - See above Diagnostics - Radiology No standard instances Radiology Interpretation Completed By: Radiologist Summary of Radiographic Findings: Order Information: KNEE LEFT 4+ VWS. Accession Number: [id number]. CPT: 79354. Indication: Left knee pain. 4 views of the left knee demonstrates no fracture or dislocation. No other bone or joint abnormality is identified. No joint effusion is noted. IMPRESSION: No fracture of the left knee is noted. 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 Patient has known seizure history. Patient was able to stand and walk on the knee immediately after the injury. Currently states is pain free. Denies any numbness or tingling. Afebrile. Vital signs stable. Patient had ccchymosis noted over the left patella. Full painless ROM to the left knee. No tenderness, gross deformity, crepitus, or locking. Circulation and sensation intact. Gait normal. X-ray showed no acute fracture or dislocation. Recommending conservative treatment for a left knee contusion including acetaminophen as needed for pain and RICE. She is to follow up with her primary care provider in 3-5 days if symptoms are not improving. Anticipatory guidance and warning symptoms were reviewed with the caregiver. Verbalizes understanding and agrees with plan of care. - Differential Dx/Diagnosis Differential Diagnosis/HQI/PQRI: Contusion, Dislocation, Fracture (Closed), Sprain Provider Diagnosis: Contusion of left knee Discharge - Sign-Out/Discharge Documenting (check all that apply): Patient Departure All imaging exams completed and their final reports reviewed: Yes - Discharge Plan Condition: Stable Disposition: HOME Patient Education Materials: Knee Pain (ED) Referrals: Kary Lopes MD [Primary Care Provider] - 3 Days Additional Instructions: The x-ray performed in the clinic today showed no evidence of a fracture. Rest the knee as much as possible. You may continue to walk and bear weight as tolerated. Apply ice to the affected area for 15-20 minutes at least 4 times a day to help with the pain and swelling. Elevate the leg while sitting to help reduce swelling. Take acetaminophen (Tylenol) according to directions as needed for pain. Follow up with your primary care provider in 3-5 days if symptoms do not improve. Seek immediate medical attention if you have severe pain not managed with pain medication, you are unable to walk or bear any weight, - Billing Disposition and Condition Condition: STABLE Disposition: Home
== END 2019-05-24 12:40 | disposition home or self-care (01) ==
LOC: UCCORT 10:23
DX: S80.02XA Contusion of left knee, initial encounter (principal); W19.XXXA Unspecified fall, initial encounter; Y93.9 Activity, unspecified; Y92.9 Unspecified place or not applicable; G40.909 Epilepsy, unspecified, not intractable, without status epilepticus; F79 Unspecified intellectual disabilities; I10 Essential (primary) hypertension
CPT/HCPCS: 99212; G0463

== ENCOUNTER 2019-12-14 10:25 | Emergency (ER) | payer MEDICARE, MEDICAID ==
[2019-12-14 11:38] VITALS: BP 114/50
--- NOTE | 2019-12-14 11:47 | UC ---
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 34 yo female c/o itchy painful rash under both breasts No fever / chills no sob /cp /cough no gi / gu issues. no rash elsewhere - History of Current Complaint Chief Complaint: UCSkin Stated Complaint: SKIN CONCERN Time Seen by Provider: 12/14/19 11:34 Hx Obtained From: Patient, Family/Detail Assembler Hx Last Menstrual Period: unknow, pt is on depo for controll. Pain Intensity: 2 - Allergy/Home Medications Allergies/Adverse Reactions: Allergies Allergy/AdvReac Type Severity Reaction Status Date / Time levetiracetam [From Keppra] Allergy See Comment Verified 12/14/19 11:23 Sulfa (Sulfonamide Allergy Difficulty Verified 12/14/19 11:23 Antibiotics) Breathing Home Medications: Home Medications Ascorbic Acid TAB* [Vitamin C TAB*] 1,000 mg PO DAILY 12/14/19 [History Confirmed 12/14/19] Carbamazepine [Carbatrol] 400 mg PO BID 12/14/19 [History Confirmed 12/14/19] PMH/Surg Hx/FS Hx/Imm Hx Previously Healthy: Yes 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), VAGAL NERVE IMPLANT (1998) - Family History Known Family History: Positive: Hypertension, Seizure Disorder - Social History Alcohol Use: None Substance Use Type: None Smoking Status (MU): Never Smoked Tobacco Have You Smoked in the Last Year: No - Immunization History Most Recent Influenza Vaccination: 2014 Most Recent Tetanus Shot: On file with primary Dr Lopes Most Recent Pneumonia Vaccination: 2013 Vaccination Up to Date: Yes Review of Systems All Other Systems Reviewed And Are Negative: Yes Constitutional: Positive: Negative Skin: Positive: Rash Eyes: Positive: Negative ENT: Positive: Negative Respiratory: Positive: Negative Cardiovascular: Positive: Negative Gastrointestinal: Positive: Negative Genitourinary: Positive: Negative Motor: Positive: Negative Neurovascular: Positive: Negative Musculoskeletal: Positive: Negative Neurological: Positive: Negative Psychological: Positive: Negative Is Patient Immunocompromised?: No Physical Exam Triage Information Reviewed: Yes Appearance: Well-Appearing, Well-Nourished Vital Signs: Initial Vital Signs Temp 97.8 F 12/14/19 11:24 Pulse 68 01/25/20 11:24 Resp 18 12/14/19 11:24 BP 114/50 12/14/19 11:24 Pulse Ox 97 12/14/19 11:24 Vital Signs Reviewed: Yes Eye Exam: Normal ENT Exam: Normal Neck exam: Normal Neck: Positive: Supple Respiratory Exam: Normal Respiratory: Positive: Chest non-tender, Lungs clear, Normal breath sounds, No respiratory distress Cardiovascular Exam: Normal Cardiovascular: Positive: RRR, Brisk Capillary Refill Abdominal Exam: Normal Abdomen Description: Positive: Nontender Musculoskeletal Exam: Normal Neurological Exam: Normal - nonacutely focal Psychological Exam: Other - nad per aide in accompaniment Skin: Positive: Rashes - Under both breasts, extending laterally under the bra and strap -> + dermatitis - c/w fungal, but also likely contact worsened. not frankly cellulitic Course/Dx - Course Course Of Treatment: Reviewed coa / tx plan. Questions as posed answered to the best of my ability. - Diagnoses Provider Diagnosis: Fungal dermatitis Discharge ED - Sign-Out/Discharge Documenting (check all that apply): Patient Departure All imaging exams completed and their final reports reviewed: No Studies - Discharge Plan Condition: Stable Disposition: HOME Prescriptions: Clotrimazole/Betamethasone* [Lotrisone Cream*] 1 applic TOPICAL BID #2 tube Patient Education Materials: Skin Yeast Infection (ED) Referrals: Marychuy Du MD [Primary Care Provider] - Additional Instructions: Please see associated instructions. Double rinse clothes for the next 3 weeks. Follow up primary care provider within one week Seek medical attention for worse or new problems in the meantime. Yogurt and / or probiotic daily. Hydrate well. Try to use cotton base undergarments, when possible. - Billing Disposition and Condition Condition: STABLE Disposition: Home
== END 2019-12-14 12:56 | disposition home or self-care (01) ==
LOC: UCCORT 10:25
DX: B36.9 Superficial mycosis, unspecified (principal); Z88.2 Allergy status to sulfonamides; Z88.8 Allergy status to other drugs, medicaments and biological substances
CPT/HCPCS: 99212; G0463